=== PATIENT | female | born 1965 | race American Indian/Alaskan Native ===

== ENCOUNTER 2017-04-20 19:16 | Emergency (ER) | payer MEDICARE ==
[2017-04-20 19:26] VITALS: BP 143/118
--- NOTE | 2017-04-20 20:04 | Cat Scan Report ---
FINAL REPORT EXAM: CT HEAD/BRAIN WO CON HISTORY: FACIAL DROOP WITH WEAKNESS TECHNIQUE: CT head without contrast PRIORS: None. FINDINGS: No acute intra-axial or extra-axial hemorrhage is identified. There is no evidence of midline shift or mass effect. The ventricles and sulci are within normal limits. Sanford-white matter differentiation is intact. No acute parenchymal abnormalities seen. Bony calvarium is grossly intact. Visualized portions of the mastoids and paranasal sinuses are unremarkable. IMPRESSION: Negative CT head
[2017-04-20 20:11] LABS: Hematocrit 37.8 % (30.3-42.9); Hemoglobin 12.4 gm/dl (10.1-14.3); Mean Corpuscular HGB Conc 33 % (30-34); Mean Corpuscular Hemoglobin 28 pg (28-32); Mean Corpuscular Volume 85 fl (79-97); Platelet Count 192 K/mm3 (140-440); Red Blood Count 4.46 M/mm3 (3.65-5.03); Red Cell Distribution Width 13.9 % (13.2-15.2)
[2017-04-20 20:23] LABS: INR 0.94 (0.87-1.13)
[2017-04-20 20:24] LABS: Partial Thromboplastin Time 28.6 Sec. (24.2-36.6); Thrombin Time 17.4 Sec. (15.1-19.6)
[2017-04-20 20:25] LABS: Alanine Aminotransferase 18 units/L (7-56); Albumin 3.7 g/dL (3.9-5); BUN/Creatinine Ratio 18; Blood Urea Nitrogen 11 mg/dL (7-17); Calcium 8.8 mg/dL (8.4-10.2); Hemolysis Index 5
[2017-04-20 20:39] LABS: Creatine Kinase MB < 1.0 ng/mL (0.0-4.0)
[2017-04-20 20:51] LABS: Basophils % (Manual) 0 % (0.0-1.8); Total Cells Counted 100
[2017-04-20 20:52] LABS: Anisocytosis Few
== END 2017-04-21 01:00 | disposition left against medical advice (07) ==
LOC: ED 19:16
DX: R29.810 Facial weakness (principal); R51 Headache; I10 Essential (primary) hypertension; Z53.21 Procedure and treatment not carried out due to patient leaving prior to being seen by health care provider
CPT/HCPCS: 36415; 70450; 80048; 80053; 82550; 82553; 84484; 85007; 85025; 85610; 85670; 85730; 93005; 93010

== ENCOUNTER 2019-02-01 08:17 | Observation (INO) | payer MEDICARE ==
--- NOTE | 2019-02-01 08:27 | Emergency Department Report ---
ED Neuro Deficit HPI - General Stated Complaint: NEURO ISSUES Time Seen by Provider: 02/01/19 08:26 Source: patient, EMS Mode of arrival: Stretcher Limitations: Physical Limitation - History of Present Illness Initial Comments: 53-year-old female with past medical history hypertension and bipolar disorder presents to the hospital the hospital complains of stroke symptoms. Patient went to bed at 1 AM without any symptoms. She workup at 7 AM today she was incontinent of stool and complaining of slurred speech, right-sided facial droop, and right-sided weakness. Patient denies previous history of CVA. Patient states she had a seizure earlier this year and is not currently on seizure medications. She has appointment with the neurologist scheduled for February 18. Patient takes aspirin daily. comes to ed and provides some additional information. Apparently has been admitted to a [facility] with weakness after seizures. She also has been experiencing intermittent syncope and diarrhea. - Related Data Home Medications: Home Medications Medication Instructions Recorded Confirmed Last Taken ALPRAZolam [Xanax TAB] 1 mg PO BID PRN 09/08/14 09/08/14 09/06/14 FLUoxetine [PROzac] 40 mg PO QDAY 09/08/14 09/08/14 09/06/14 Potassium Chloride [K-Dur] 10 meq PO QDAY 09/08/14 09/08/14 09/06/14 Quetiapine Fumarate [Seroquel] 300 mg PO DAILY 09/08/14 09/08/14 09/06/14 Valsartan/Hydrochlorothiazide 2 tab PO QDAY 09/08/14 09/08/14 09/06/14 [Diovan Hct 80-12.5 mg] Previous Rx's Medication Instructions Recorded Last Taken Type Ibuprofen [Motrin] 800 mg PO Q8H PRN #30 tablet 09/08/14 Unknown Rx traMADoL [Ultram] 50 mg PO Q6HR PRN #20 tablet 09/08/14 Unknown Rx Naproxen [Naprosyn TAB] 500 mg PO BID PRN #14 tablet 02/18/16 Unknown Rx Allergies/Adverse Reactions: Allergies Allergy/AdvReac Type Severity Reaction Status Date / Time adhesive Allergy Hives Verified 02/17/16 18:56 ED Review of Systems ROS: Stated complaint: NEURO ISSUES Other details as noted in HPI Comment: All other systems reviewed and negative ED Past Medical Hx - Past Medical History Hx Hypertension: Yes Hx Psychiatric Treatment: Yes (BIPOLAR, ANXIETY) - Surgical History Additional Surgical History: SADAF/ ORTHO SURG RIGHT LEG. x1. - Social History Smoking Status: Never Smoker Substance Use Type: None - Medications Home Medications: Home Medications Medication Instructions Recorded Confirmed Last Taken Type ALPRAZolam [Xanax TAB] 1 mg PO BID PRN 09/08/14 09/08/14 09/06/14 History FLUoxetine [PROzac] 40 mg PO QDAY 09/08/14 09/08/14 09/06/14 History Ibuprofen [Motrin] 800 mg PO Q8H PRN #30 tablet 09/08/14 Unknown Rx Potassium Chloride [K-Dur] 10 meq PO QDAY 09/08/14 09/08/14 09/06/14 History Quetiapine Fumarate [Seroquel] 300 mg PO DAILY 09/08/14 09/08/14 09/06/14 History Valsartan/Hydrochlorothiazide 2 tab PO QDAY 09/08/14 09/08/14 09/06/14 History [Diovan Hct 80-12.5 mg] traMADoL [Ultram] 50 mg PO Q6HR PRN #20 tablet 09/08/14 Unknown Rx Naproxen [Naprosyn TAB] 500 mg PO BID PRN #14 tablet 02/18/16 Unknown Rx ED Neuro Physical Exam - General Suspected Stroke: Yes - NIHSS Assessment Interval: Baseline 1a. Level of Consciousness: alert/keenly responsive 1b. LOC Questions: answers both correctly 1c. LOC Commands: performs tasks correctly 2. Best Gaze: normal 3. Visual: no visual loss 4. Facial Palsy: minor paralysis 5b. Motor Arm Right: no drift 5a. Motor Arm Left: no drift 6a. Motor Leg Left: no drift 6b. Motor Leg Right: no drift 7. Limb Ataxia: absent 8. Sensory: mild/moderate sensory loss 9. Best Language: no aphasia 10. Dysarthria: normal 11. Extinction/Inattention: no abnormality Total Score: 2 Stroke Severity: Minor Stroke - Other Other exam information: General: No acute distress Head: Atraumatic Eyes: normal appearance ENT: Moist mucous membranes Neck: Normal appearance, no midline tenderness Chest: Clear to auscultation bilaterally CV: Regular rate and rhythm Abdomen: Soft, normal bowel sounds, nontender, nondistended, no rebound or guarding Back: Normal inspection Extremity: Normal inspection infection, full range of motion Neuro: Alert O x 3, see NIHSS Psych: Appropriate behavior Skin: No rash ED Course Vital Signs 02/01/19 02/01/19 02/01/19 08:30 08:54 08:57 Temperature 98.2 F Pulse Rate 69 60 Respiratory 18 21 16 Rate Blood Pressure 161/75 Blood Pressure [Left] O2 Sat by Pulse 99 99 Oximetry 02/01/19 08:58 Temperature Pulse Rate 59 L Respiratory 16 Rate Blood Pressure Blood Pressure 132/72 [Left] O2 Sat by Pulse 97 Oximetry - Lab Data Result diagrams: 02/01/19 08:29 02/01/19 08:29 Lab Results 02/01/19 02/01/19 02/01/19 Range/Units 08:28 08:29 08:29 WBC 7.8 (4.5-11.0) K/mm3 RBC 4.83 (3.65-5.03) M/mm3 Hgb 14.1 (10.1-14.3) gm/dl Hct 42.9 (30.3-42.9) % MCV 89 (79-97) fl MCH 29 (28-32) pg MCHC 33 (30-34) % RDW 13.6 (13.2-15.2) % Plt Count 194 (140-440) K/mm3 Lymph % (Auto) 38.0 H (13.4-35.0) % Cowley % (Auto) 4.7 (0.0-7.3) % Eos % (Auto) 1.6 (0.0-4.3) % Baso % (Auto) 0.2 (0.0-1.8) % Lymph # 2.9 (1.2-5.4) K/mm3 Cowley # 0.4 (0.0-0.8) K/mm3 Eos # 0.1 (0.0-0.4) K/mm3 Baso # 0.0 (0.0-0.1) K/mm3 Seg Neutrophils % 55.5 (40.0-70.0) % Seg Neutrophils # 4.3 (1.8-7.7) K/mm3 PT 13.0 (12.2-14.9) Sec. INR 0.99 (0.87-1.13) APTT 28.5 (24.2-36.6) Sec. Thrombin Time 17.5 (15.1-19.6) Sec. Sodium (137-145) mmol/L Potassium (3.6-5.0) mmol/L Chloride (98-107) mmol/L Carbon Dioxide (22-30) mmol/L Anion Gap mmol/L BUN (7-17) mg/dL Creatinine (0.7-1.2) mg/dL Estimated GFR ml/min BUN/Creatinine Ratio % Glucose (65-100) mg/dL POC Glucose 85 (70-105) Calcium (8.4-10.2) mg/dL 02/01/19 Range/Units 08:29 WBC (4.5-11.0) K/mm3 RBC (3.65-5.03) M/mm3 Hgb (10.1-14.3) gm/dl Hct (30.3-42.9) % MCV (79-97) fl MCH (28-32) pg MCHC (30-34) % RDW (13.2-15.2) % Plt Count (140-440) K/mm3 Lymph % (Auto) (13.4-35.0) % Cowley % (Auto) (0.0-7.3) % Eos % (Auto) (0.0-4.3) % Baso % (Auto) (0.0-1.8) % Lymph # (1.2-5.4) K/mm3 Cowley # (0.0-0.8) K/mm3 Eos # (0.0-0.4) K/mm3 Baso # (0.0-0.1) K/mm3 Seg Neutrophils % (40.0-70.0) % Seg Neutrophils # (1.8-7.7) K/mm3 PT (12.2-14.9) Sec. INR (0.87-1.13) APTT (24.2-36.6) Sec. Thrombin Time (15.1-19.6) Sec. Sodium 143 (137-145) mmol/L Potassium 3.6 (3.6-5.0) mmol/L Chloride 105.2 (98-107) mmol/L Carbon Dioxide 22 (22-30) mmol/L Anion Gap 19 mmol/L BUN 14 (7-17) mg/dL Creatinine 0.7 (0.7-1.2) mg/dL Estimated GFR > 60 ml/min BUN/Creatinine Ratio 20 % Glucose 94 (65-100) mg/dL POC Glucose (70-105) Calcium 9.3 (8.4-10.2) mg/dL - EKG Data -: EKG Interpreted by Me EKG shows normal: sinus rhythm, ST-T waves (no stemi) Rate: normal (63) - Radiology Data Radiology results: report reviewed CT HEAD WITHOUT CONTRAST INDICATION : MAIN: rule out stroke CODE STROKE [id number]. TECHNIQUE: Axial imaging performed from the skull apex through the skull base without the use of contrast. All CT scans at this location are performed using CT dose reduction for ALARA by means of automated exposure control. COMPARISON: 04/20/2017 FINDINGS: Parenchyma: No abnormal density. No mass or mass effect. No hemorrhage or edema. Ventricles: Ventricles are normal in size and appear symmetric. Soft tissues: Soft tissues including the orbits appear normal. Bones: No acute osseous abnormality. Sinuses: Sinuses and mastoid air cells are clear. IMPRESSION: 1. Normal head CT. 2. No evidence of acute infarct or hemorrhage. - Medical Decision Making pt with seizure vs syncope neuro evaluated pt, not a tpa candidate (see neuro note) asa provided plan to admit to hospitalist - Differential Diagnosis seizure, syncope, conversion disorder, Duncan paralysis - Thrombolytic Inclusion/Exclusion Thrombolytic Exclusion Criteria: Symptom Onset > 3 Hours Critical Care Time: No Critical care attestation.: If time is entered above; I have spent that time in minutes in the direct care of this critically ill patient, excluding procedure time. ED Disposition Clinical Impression: Stroke, HTN (hypertension) Disposition: DC-09 OP ADMIT IP TO THIS HOSP Is pt being admited?: Yes Condition: Stable Time of Disposition: 09:26 (Dr Mckinley/ to be admitted to Dr Holguin)
--- NOTE | 2019-02-01 08:46 | Cat Scan Report ---
CT HEAD WITHOUT CONTRAST INDICATION : MAIN: rule out stroke CODE STROKE [id number]. TECHNIQUE: Axial imaging performed from the skull apex through the skull base without the use of con trast. All CT scans at this location are performed using CT dose reduction for ALARA by means of aut omated exposure control. COMPARISON: 04/20/2017 FINDINGS: Parenchyma: No abnormal density. No mass or mass effect. No hemorrhage or edema. Ventricles: Ventricles are normal in size and appear symmetric. Soft tissues: Soft tissues including the orbits appear normal. Bones: No acute osseous abnormality. Sinuses: Sinuses and mastoid air cells are clear. IMPRESSION: 1. Normal head CT. 2. No evidence of acute infarct or hemorrhage. CRITICAL RESULT: Time of Discovery (TARGET WORKER/CDT): 7:39 AM Time of Communication (TARGET WORKER/CDT): 7:40 AM Licensed Practitioner Receiving Report: Lori Lake M.D. Read Back Performed: Yes. Signer Name: Serge Messina MD Signed: 02/01/2019 8:42 AM Workstation Name: [id number]
[2019-02-01] MEDS ORDERED: ASPIRIN 81 MG TAB CHEW PO NR (08:51)
--- NOTE | 2019-02-01 08:51 | Emergency Department Report ---
ED Neuro Deficit HPI - General Chief Complaint: Altered Mental Status Stated Complaint: NEURO ISSUES Time Seen by Provider: 02/01/19 08:26 Source: patient, EMS Mode of arrival: Stretcher Limitations: Physical Limitation - History of Present Illness Initial Comments: [facility] TeleStroke Metrics: LKW: 0100 Door Time: 0817 [facility] Contacted: 0809 [facility] at Bedside: 0811 NIHSS: 0829 Decision on Alteplase: Not to give as the patient's last known well time is greater than 4.5 hours prior to her presentation. Interventional Candidate: Not a candidate as her symptoms are not consistent with a large vessel proximal occlusion. Chief Complaint: Right facial droop, slurred speech, and right-sided numbness HPI: Asked to see this patient in emergent telemedicine consultation utilizing interactive audio and video technologies. Consultation was performed with assistance of ancillary / medical staff at bedside. Verbal consent to perform the examination with telemedicine was obtained. Socorro leonard agreed to proceed with the consultation for acute stroke protocol. 53-year-old right-handed -[place] female who comes to the emergency room by EMS as a stroke alert for right facial droop, slurred speech, incontinence, and right-sided numbness. Patient takes a baby aspirin at baseline. She reported a history of possible seizure this year where she had whole body jerking. She is not on any seizure medications, and is scheduled to see neurology on February 18. Review of the medical records also showed that in April 2017, the patient presented to the ER with a facial droop and slurred speech. Head CT was negative. She had left the ER prior to evaluation. Patient states she went to bed around 1 AM at her baseline. She then woke up at 7 AM with a right facial droop, slurred speech, and incontinence of bowel. She also has right-sided numbness. PMH: Hypertension, bipolar disorder, anxiety disorder, and possible seizure SOC: Negative x2. Patient drinks an occasional glass of wine. She is . FMH: Positive for stroke and NM. ROS: 13 point review systems were reviewed with the patient, and are all negative with the exception of the aforementioned in the history of present illness. VS: Blood pressure 162 175, pulse 73, respiration 18, oxygen saturation 99% Exam: Patient is in no apparent distress. Patient appears as stated age. No obvious acute respiratory or cardiac distress. Patient is well groomed and well-nourished. 1a- LOC: Keenly responsive - 0 1b- LOC questions: Answers both questions correctly - 0 1c- LOC commands- Performs both tasks correctly- 0 2- Gaze: Normal; no gaze paresis or gaze deviation - 0 3- Visual Chandra: normal, no Visual field deficit - 0 4- Facial movements: right facial palsy - 1 5- Upper limb motor - no drift - 0 6- Lower limb motor - no drift - 0 7- Limb Coordination: absent ataxia - 0 8- Sensory: right sided sensory loss - 1 9- Language - No aphasia - 0 10- Speech - No dysarthria -0 11- Neglect / Extinction - none found - 0 NIHSS score: 2 Diagnostic Data: Blood sugar 85 CT head showed no acute intracranial process Medical Data Reviewed: 1.Data?reviewed include clinical labs, radiology,?and medical tests; 2.Tests?results discussed w/performing or interpreting physician; 3.Obtaining/reviewing old medical records; 4.Obtaining?case history from another source; 5.Independent?review of image, tracing, or specimen. Medical Decision Making: - Extensive number of diagnosis or management options are considered below. - Extensive amount of complex data reviewed. - High risk of complication and/or morbidity or mortality are associated with differential diagnostic considerations below. - There may be?uncertain?outcome and increased probability of prolonged functional impairment or high probability of severe prolonged functional impairment associated with some of these differential diagnosis. Differential Diagnosis for Stroke: 1.?Cardioembolic?stroke 2. Small vessel disease/lacune 3. Thromboembolic, [id number] mechanism 4.?Hypercoagulable?state-related infarct 5. Transient ischemic attack 6. Thrombotic mechanism, large artery disease Assessment: 1. Right-sided numbness with right facial droop. Differential diagnosis includes conversion disorder versus stroke versus seizure. 2. Possible seizure 3. Hypertension 4. Bipolar disorder Recommendations: Patient can be admitted to the hospital for further work-up of her symptoms. Maintain the patient on aspirin 325 mg daily. Allow permissive hypertension. Check MRI brain without contrast to rule out any acute intracranial process. Check MRA of the head and neck to evaluate her intracranial and extracranial blood vessels. Check echocardiogram to gauge her cardiac function. Maintain the patient on telemetry to look for paroxysmal atrial fibrillation. Check an EEG to rule out subclinical seizures given her reported history of seizure and bowel incontinence. Check hemoglobin A1c, lipid panel, and urine drug screen. Consult PT, OT, and ST. Continue supportive care. Thank you for allowing [facility] to participate in the care of your patient. Please call me, Dr. Aquino, with any questions at [phone]. Case discussed with the ER staff and Dr. Lake. Critical Care notation: I was called to see this critical patient emergently. I personally evaluated this critical patient for acute stroke evaluation, and determining their eligibility for IV Alteplase and interventional therapies. I have spent approximately 27 minutes with the patient, including time at bedside, time discussing the case with other physicians, reviewing plan of care, and time independently reviewing the records and scans. - Related Data Home Medications: Home Medications Medication Instructions Recorded Confirmed Last Taken ALPRAZolam [Xanax TAB] 1 mg PO BID PRN 09/08/14 09/08/14 09/06/14 FLUoxetine [PROzac] 40 mg PO QDAY 09/08/14 09/08/14 09/06/14 Potassium Chloride [K-Dur] 10 meq PO QDAY 09/08/14 09/08/14 09/06/14 Quetiapine Fumarate [Seroquel] 300 mg PO DAILY 09/08/14 09/08/14 09/06/14 Valsartan/Hydrochlorothiazide 2 tab PO QDAY 09/08/14 09/08/14 09/06/14 [Diovan Hct 80-12.5 mg] Previous Rx's Medication Instructions Recorded Last Taken Type Ibuprofen [Motrin] 800 mg PO Q8H PRN #30 tablet 09/08/14 Unknown Rx traMADoL [Ultram] 50 mg PO Q6HR PRN #20 tablet 09/08/14 Unknown Rx Naproxen [Naprosyn TAB] 500 mg PO BID PRN #14 tablet 02/18/16 Unknown Rx Allergies/Adverse Reactions: Allergies Allergy/AdvReac Type Severity Reaction Status Date / Time adhesive Allergy Hives Verified 02/17/16 18:56 ED Review of Systems ROS: Stated complaint: NEURO ISSUES Other details as noted in HPI ED Past Medical Hx - Past Medical History Hx Hypertension: Yes Hx Psychiatric Treatment: Yes (BIPOLAR, ANXIETY) - Surgical History Additional Surgical History: SADAF/ ORTHO SURG RIGHT LEG. x1. - Social History Smoking Status: Never Smoker Substance Use Type: None - Medications Home Medications: Home Medications Medication Instructions Recorded Confirmed Last Taken Type ALPRAZolam [Xanax TAB] 1 mg PO BID PRN 09/08/14 09/08/14 09/06/14 History FLUoxetine [PROzac] 40 mg PO QDAY 09/08/14 09/08/14 09/06/14 History Ibuprofen [Motrin] 800 mg PO Q8H PRN #30 tablet 09/08/14 Unknown Rx Potassium Chloride [K-Dur] 10 meq PO QDAY 09/08/14 09/08/14 09/06/14 History Quetiapine Fumarate [Seroquel] 300 mg PO DAILY 09/08/14 09/08/14 09/06/14 History Valsartan/Hydrochlorothiazide 2 tab PO QDAY 09/08/14 09/08/14 09/06/14 History [Diovan Hct 80-12.5 mg] traMADoL [Ultram] 50 mg PO Q6HR PRN #20 tablet 09/08/14 Unknown Rx Naproxen [Naprosyn TAB] 500 mg PO BID PRN #14 tablet 02/18/16 Unknown Rx ED Neuro Physical Exam - General Limitations: Physical Limitation Suspected Stroke: Yes - NIHSS Assessment Interval: Baseline 1a. Level of Consciousness: alert/keenly responsive 1b. LOC Questions: answers both correctly 1c. LOC Commands: performs tasks correctly 2. Best Gaze: normal 3. Visual: no visual loss 4. Facial Palsy: minor paralysis 5b. Motor Arm Right: no drift 5a. Motor Arm Left: no drift 6a. Motor Leg Left: no drift 6b. Motor Leg Right: no drift 7. Limb Ataxia: absent 8. Sensory: mild/moderate sensory loss 9. Best Language: no aphasia 10. Dysarthria: normal 11. Extinction/Inattention: no abnormality Total Score: 2 Stroke Severity: Minor Stroke Critical care attestation.: If time is entered above; I have spent that time in minutes in the direct care of this critically ill patient, excluding procedure time. ED Disposition Clinical Impression: Stroke Disposition: OP ADMIT IP TO THIS HOSP Is pt being admited?: Yes Does the pt Need Aspirin: Yes Condition: Stable
[2019-02-01 09:07] LABS: Basophils % (Auto) 0.2 % (0.0-1.8); Eosinophils # (Auto) 0.1 K/mm3 (0.0-0.4); Eosinophils % (Auto) 1.6 % (0.0-4.3); Hematocrit 42.9 % (30.3-42.9); Hemoglobin 14.1 gm/dl (10.1-14.3); Lymphocytes # (Auto) 2.9 K/mm3 (1.2-5.4); Mean Corpuscular HGB Conc 33 % (30-34); Mean Corpuscular Volume 89 fl (79-97); Monocytes # (Auto) 0.4 K/mm3 (0.0-0.8); Monocytes % (Auto) 4.7 % (0.0-7.3); Platelet Count 194 K/mm3 (140-440); Red Blood Count 4.83 M/mm3 (3.65-5.03); Red Cell Distribution Width 13.6 % (13.2-15.2)
[2019-02-01 09:11] LABS: BUN/Creatinine Ratio 20; Blood Urea Nitrogen 14 mg/dL (7-17); Calcium 9.3 mg/dL (8.4-10.2); Hemolysis Index 7
[2019-02-01 09:19] LABS: INR 0.99 (0.87-1.13)
[2019-02-01 09:20] LABS: Partial Thromboplastin Time 28.5 Sec. (24.2-36.6); Thrombin Time 17.5 Sec. (15.1-19.6)
[2019-02-01] MEDS ORDERED: ASPIRIN 325 MG TAB PO ONE (09:27)
--- NOTE | 2019-02-01 12:47 | History and Physical Report ---
History of Present Illness Date of examination: 02/01/19 Date of admission: 02/01/19 09:37 Medications and Allergies Allergies Allergy/AdvReac Type Severity Reaction Status Date / Time adhesive Allergy Hives Verified 02/17/16 18:56 Home Medications Medication Instructions Recorded Confirmed Last Taken Type ALPRAZolam [Xanax TAB] 1 mg PO BID PRN 09/08/14 09/08/14 09/06/14 History FLUoxetine [PROzac] 40 mg PO QDAY 09/08/14 09/08/14 09/06/14 History Ibuprofen [Motrin] 800 mg PO Q8H PRN #30 tablet 09/08/14 Unknown Rx Potassium Chloride [K-Dur] 10 meq PO QDAY 09/08/14 09/08/14 09/06/14 History Quetiapine Fumarate [Seroquel] 300 mg PO DAILY 09/08/14 09/08/14 09/06/14 History Valsartan/Hydrochlorothiazide 2 tab PO QDAY 09/08/14 09/08/14 09/06/14 History [Diovan Hct 80-12.5 mg] traMADoL [Ultram] 50 mg PO Q6HR PRN #20 tablet 09/08/14 Unknown Rx Naproxen [Naprosyn TAB] 500 mg PO BID PRN #14 tablet 02/18/16 Unknown Rx Exam - Constitutional Vitals: Temp Pulse Resp BP Pulse Ox 98.2 F 59 L 16 132/72 97 02/01/19 08:30 02/01/19 08:58 02/01/19 08:58 02/01/19 08:58 02/01/19 08:58 Results - Labs CBC & Chem 7: 02/01/19 08:29 02/01/19 08:29 Labs: Laboratory Last Values WBC 7.8 K/mm3 (4.5-11.0) 02/01/19 08:29 RBC 4.83 M/mm3 (3.65-5.03) 02/01/19 08:29 Hgb 14.1 gm/dl (10.1-14.3) 02/01/19 08:29 Hct 42.9 % (30.3-42.9) 02/01/19 08:29 MCV 89 fl (79-97) 02/01/19 08:29 MCH 29 pg (28-32) 02/01/19 08:29 MCHC 33 % (30-34) 02/01/19 08:29 RDW 13.6 % (13.2-15.2) 02/01/19 08:29 Plt Count 194 K/mm3 (140-440) 02/01/19 08:29 Lymph % (Auto) 38.0 % (13.4-35.0) H 02/01/19 08:29 Barron % (Auto) 4.7 % (0.0-7.3) 02/01/19 08:29 Eos % (Auto) 1.6 % (0.0-4.3) 02/01/19 08:29 Baso % (Auto) 0.2 % (0.0-1.8) 02/01/19 08:29 Lymph # 2.9 K/mm3 (1.2-5.4) 02/01/19 08:29 Barron # 0.4 K/mm3 (0.0-0.8) 02/01/19 08:29 Eos # 0.1 K/mm3 (0.0-0.4) 02/01/19 08:29 Baso # 0.0 K/mm3 (0.0-0.1) 02/01/19 08:29 Seg Neutrophils % 55.5 % (40.0-70.0) 02/01/19 08:29 Seg Neutrophils # 4.3 K/mm3 (1.8-7.7) 02/01/19 08:29 PT 13.0 Sec. (12.2-14.9) 02/01/19 08:29 INR 0.99 (0.87-1.13) 02/01/19 08:29 APTT 28.5 Sec. (24.2-36.6) 02/01/19 08:29 Thrombin Time 17.5 Sec. (15.1-19.6) 02/01/19 08:29 Sodium 143 mmol/L (137-145) 02/01/19 08:29 Potassium 3.6 mmol/L (3.6-5.0) 02/01/19 08:29 Chloride 105.2 mmol/L (98-107) 02/01/19 08:29 Carbon Dioxide 22 mmol/L (22-30) 02/01/19 08:29 Anion Gap 19 mmol/L 02/01/19 08:29 BUN 14 mg/dL (7-17) 02/01/19 08:29 Creatinine 0.7 mg/dL (0.7-1.2) 02/01/19 08:29 Estimated GFR > 60 ml/min 02/01/19 08:29 BUN/Creatinine Ratio 20 % 02/01/19 08:29 Glucose 94 mg/dL (65-100) 02/01/19 08:29 POC Glucose 85 (70-105) 02/01/19 08:28 Calcium 9.3 mg/dL (8.4-10.2) 02/01/19 08:29
--- NOTE | 2019-02-01 13:38 | History and Physical Report ---
History of Present Illness Date of examination: 02/01/19 Date of admission: 02/01/19 09:37 Chief complaint: throat closing History of present illness: Patient is a 53 yo woman with a history of hypertension, KD on cpap, bipolar disorder, allergic rhinitis and seizure disorder who presents to [facility] ED with throat closing, inability to swallow after waking up from sleep at 6:45 am. She had urinary incontinency and fecal frequency and incontinency. She felt her face was tingling. She denies headache, syncope. She admits to stopping her anti- seizure medications and has an appointment with Neurologist in February 2019. She complains of slurred speech, right facial droop and right sided weakness which have all resolved. PMH: as hpi PSH: tonsil, x 2, appendix removed, metal ajay right lower leg SH: denies etoh/tob/illicit drugs FH: sister CVA, father cardiac stent in his 70s, hypertension and DM ROS: Constitutional: denies: fever ENT: denies: throat or neck pain Respiratory: denies: cough, shortness of breath Cardiovascular: denies: chest pain Endocrine: denies unexplained weight loss or gain Gastrointestinal: denies: abdominal pain, nausea Genitourinary: denies: dysuria Rectal: denies no incontinence, no bleeding, no itching, no discharge Musculoskeletal: denies swelling, myaglia, muscle weakness Skin: denies: rash Neurological: denies: headache Hematological/Lymphatic: denies: easy bleeding or easy bruising Allergic/Immunologic: no urticaria, no allergic rhinitis, no anaphylaxis Psych: denies sadness or hopelessness, SI/HI Medications and Allergies Allergies Allergy/AdvReac Type Severity Reaction Status Date / Time adhesive Allergy Hives Verified 02/17/16 18:56 Home Medications Medication Instructions Recorded Confirmed Last Taken Type ALPRAZolam [Xanax TAB] 1 mg PO BID PRN 09/08/14 09/08/14 09/06/14 History FLUoxetine [PROzac] 40 mg PO QDAY 09/08/14 09/08/14 09/06/14 History Ibuprofen [Motrin] 800 mg PO Q8H PRN #30 tablet 09/08/14 Unknown Rx Potassium Chloride [K-Dur] 10 meq PO QDAY 09/08/14 09/08/14 09/06/14 History Quetiapine Fumarate [Seroquel] 300 mg PO DAILY 09/08/14 09/08/14 09/06/14 History Valsartan/Hydrochlorothiazide 2 tab PO QDAY 09/08/14 09/08/14 09/06/14 History [Diovan Hct 80-12.5 mg] traMADoL [Ultram] 50 mg PO Q6HR PRN #20 tablet 09/08/14 Unknown Rx Naproxen [Naprosyn TAB] 500 mg PO BID PRN #14 tablet 02/18/16 Unknown Rx Exam - Physical Exam Narrative exam: Gen: WDWN, NAD, Awake, Alert, Orientated x 3 HEENT: NCAT, EOMI, PERRL, OP Clear Neck: supple, no adenopathy, no thyromegaly, no JVD CVS/Heart: RRR, normal S1S2, pulses present bilaterally Chest/Lungs: CTA B, Symmetrical chest expansion, good air entry bilaterally GI/Abdomen: soft, NTND, good bowel sounds, no guarding or rebound /Bladder: no suprapubic tenderness, no CVA or paraspinal tenderness Extermity/Skin: no c/c/e, no obvious rash MSK: FROM x 4 Neuro: CN 2-12 grossly intact, no new focal deficits Psych: calm - Constitutional Vitals: Temp Pulse Resp BP Pulse Ox 98.2 F 59 L 16 132/72 97 02/01/19 08:30 02/01/19 08:58 02/01/19 08:58 02/01/19 08:58 02/01/19 08:58 Results - Labs CBC & Chem 7: 02/01/19 08:29 02/01/19 08:29 Labs: Abnormal lab results 02/01/19 Range/Units 08:29 Lymph % (Auto) 38.0 H (13.4-35.0) % Assessment and Plan Patient is a 53 yo woman with a history of hypertension, KD on cpap, bipolar disorder, allergic rhinitis and seizure disorder who presents to [facility] ED with throat closing, inability to swallow after waking up from sleep at 6:45 am. She had urinary incontinency and fecal frequency and incontinency. She felt her face was tingling. She denies headache, syncope. She admits to stopping her anti- seizure medications and has an appointment with Neurologist in February 2019. She complains of slurred speech, right facial droop and right sided weakness which have all resolved. * CT head without contrast Impression: Normal head CT AMS, appears to be sz related vs stroke vs tia vs mike's palsy vs conversion disorder: mri brain, neurology consult, neurochecks, sz precautions Seizure; restart sz medication, EEG and housing counselor on compliance KD: continue cpap Hypertension: low salt/cardiac diet, continue home antihypertensives Bipolar disorder: continue home medication DVT ppx sq heparin
[2019-02-01] MEDS ORDERED: traMADol 50 MG TAB PO PRN (13:42)
[2019-02-01] MEDS ORDERED: ALPRAZolam 1 MG TAB PO PRN (13:42)
[2019-02-01] MEDS ORDERED: ONDANSETRON 4 MG/2 ML INJ IV PRN (13:43)
[2019-02-01] MEDS ORDERED: ACETAMINOPHEN 325 MG TAB PO PRN (13:43)
[2019-02-01] MEDS ORDERED: ZOLPIDEM 5 MG TAB PO PRN (13:46)
--- NOTE | 2019-02-01 17:45 | Magnetic Resonance Report ---
MRI BRAIN WITHOUT CONTRAST INDICATION / CLINICAL INFORMATION: facial droop. TECHNIQUE: Multiplanar, multisequence MR images of the brain were obtained. COMPARISON: None available. FINDINGS: BRAIN / INTRACRANIAL CONTENTS: There are minimal left periventricular white matter changes adjacent t o the frontal horns which are nonspecific though may reflect mild microvascular changes at. The diffu nichelle imaging reveals no evidence of acute infarction. The ventricular system is appropriate in size a nd configuration. No extra-axial fluid collections or significant mass effect is identified at. CRANIOCERVICAL JUNCTION: No significant abnormality. 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 The vascular structures otherwise grossly demonstrate appropriate signal voids. ORBITS: No significant abnormality. SINUSES / MASTOIDS: There is minimal mucosal thickening involving the ethmoid and inferior maxillary sinuses. ADDITIONAL FINDINGS: None. IMPRESSION: 1. The MRI the brain is unremarkable for age without evidence of recent infarction. Signer Name: Sergio Nguyen MD Signed: 02/01/2019 5:41 PM Workstation Name: [id number]
--- NOTE | 2019-02-01 17:55 | Magnetic Resonance Report ---
MR MRA/MRV head wo con INDICATION / CLINICAL INFORMATION: 53 years Female; facial droop. TECHNIQUE: 3-D time of flight. NASCET type criteria used to evaluate stenoses. COMPARISON: None available. FINDINGS: INTERNAL CAROTID ARTERIES: The motion degrades image quality. However, there is no significant disc s tenosis involving visualized internal carotid arteries. 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 There is no significant narrowing of the basilar artery. DISTAL BRANCHES: The visualized cerebral arteries and proximal branches also demonstrate appropriate caliber without significant focal narrowing. ANEURYSM: None identified. 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 Otherwise, the MRA of the head is unremarkable. Signer Name: Sergio Nguyen MD Signed: 02/01/2019 5:50 PM Workstation Name: [id number]
[2019-02-01] MEDS ORDERED: ASPIRIN 325 MG TAB ONE (17:59)
--- NOTE | 2019-02-01 18:09 | Consultation ---
History of Present Illness Consult date: 02/01/19 Chief complaint: possible seizure History of present illness: This is a 53 YO F who presented to the ED after having what is described as an allergic reaction followed by focal neurologic symptoms. PT withseizure disorder and admits that she stopped taking her Lamictal a while ago and has had several spells lately. She stopped the Lamictal by accident, her MD told her to stop a BP med and she thought it was the Lamictal. Currently at baseline. Past History Past Medical History: hypertension, seizures Past Surgical History: No surgical history Social history: no significant social history, Family history: hypertension Medications and Allergies Allergies Allergy/AdvReac Type Severity Reaction Status Date / Time adhesive Allergy Hives Verified 02/17/16 18:56 Home Medications Medication Instructions Recorded Confirmed Last Taken Type ALPRAZolam [Xanax TAB] 1 mg PO BID PRN 09/08/14 09/08/14 09/06/14 History FLUoxetine [PROzac] 40 mg PO QDAY 09/08/14 09/08/14 09/06/14 History Ibuprofen [Motrin] 800 mg PO Q8H PRN #30 tablet 09/08/14 Unknown Rx Potassium Chloride [K-Dur] 10 meq PO QDAY 09/08/14 09/08/14 09/06/14 History Quetiapine Fumarate [Seroquel] 300 mg PO DAILY 09/08/14 09/08/14 09/06/14 History Valsartan/Hydrochlorothiazide 2 tab PO QDAY 09/08/14 09/08/14 09/06/14 History [Diovan Hct 80-12.5 mg] traMADoL [Ultram] 50 mg PO Q6HR PRN #20 tablet 09/08/14 Unknown Rx Naproxen [Naprosyn TAB] 500 mg PO BID PRN #14 tablet 02/18/16 Unknown Rx Active Meds: Active Medications Acetaminophen (Tylenol) 650 mg PO Q4H PRN PRN Reason: Pain, Mild (1-3) Alprazolam (Xanax) 1 mg PO BID PRN PRN Reason: Anxiety Aspirin (Aspirin) 325 mg PO QDAY [facility] Atorvastatin Calcium (Lipitor) 40 mg PO QHS [facility] Heparin Sodium (Porcine) (Heparin) 5,000 unit SUB-Q Q12HR [facility] Hydrochlorothiazide (Hctz) 25 mg PO QDAY [facility] Loratadine (Claritin) 10 mg PO QDAY [facility] Ondansetron HCl (Zofran) 4 mg IV Q8H PRN PRN Reason: Nausea And Vomiting Quetiapine Fumarate (Seroquel) 300 mg PO DAILY [facility] Sodium Chloride (Sodium Chloride Flush Syringe 10 Ml) 10 ml IV PRN PRN PRN Reason: LINE FLUSH Tramadol HCl (Ultram) 50 mg PO Q6HR PRN PRN Reason: PAIN Valsartan (Diovan) 160 mg PO QDAY [facility] Zolpidem Tartrate (Ambien) 5 mg PO QHS PRN PRN Reason: Sleep Review of Systems Neurological: seizures Physical Examination - Vital Signs Vital Signs: Vital Signs Temp Pulse Resp BP Pulse Ox 98.2 F 69 18 161/75 99 02/01/19 08:30 02/01/19 08:30 02/01/19 08:30 02/01/19 08:30 02/01/19 08:30 - Constitutional General appearance: comfortable - EENT EENT: Present: PERRL, mucous membranes moist - Respiratory Respiratory: Present: lungs clear - Cardiovascular Cardiovascular: Present: regular rate - Gastrointestinal Gastrointestinal: Present: normoactive bowel sounds - Integumentary Integumentary: Present: normal - Neurologic Cranial nerve examination: PERRL, EOMI, V1/V2/V3 grossly intact, face symmetric, intact Speech examination: intact Sensorimotor examination: intact Detailed motor examination: grossly full strength in Detailed sensory examination: intact Reflexes: 1+: ankle, bicep, knee, tricep - Psychiatric Psychiatric: Present: mood/affect appropriate Results - Laboratory Findings CBC and BMP: 02/01/19 08:29 02/01/19 08:29 Abnormal Lab Findings: Abnormal Labs 02/01/19 08:29 Lymph % (Auto) 38.0 H - Diagnostic Findings Additional findings: MRI Brain/MRA head unremarkable Assessment and Plan This is a 53 YO F with likely allergic reaction and lowered seizure threshold secondary to this and lack of medication compliance. Recommend: Will restart Lamictal 25 mg BID, can increase to 50 mg BID in one week and further adjustments can be made by her neurologist outpatient Seizure precautions COntinue care for all medical issues as you are doing No driving as per [place] law If possible please find a substitute pain medication for Tramadol. This can lower seizure threshold. Please call with questions.
[2019-02-01] MEDS: LORATADINE (NF) 10 MG TAB PO SCH (18:25)
[2019-02-01] MEDS: lamoTRIgine 25 MG TAB PO SCH (21:38)
[2019-02-02 06:27] LABS: Chol/HDL Ratio 3.06 %
[2019-02-02] MEDS: lamoTRIgine 25 MG TAB PO SCH (09:38)
[2019-02-02] MEDS: QUEtiapine 100 MG TAB PO SCH ×2 (09:38→10:16)
[2019-02-02 09:39] VITALS: BP 121/70
[2019-02-02] MEDS: LORATADINE (NF) 10 MG TAB PO SCH (09:39)
[2019-02-02] MEDS ORDERED: HYDROCHLOROTHIAZIDE PO SCH (10:00)
[2019-02-02] MEDS ORDERED: hydroCHLOROthiazide 25 MG TAB PO SCH (10:00)
[2019-02-02] MEDS ORDERED: VALSARTAN 160MG TAB PO SCH (10:00)
[2019-02-02] MEDS ORDERED: VALSARTAN PO SCH (10:00)
[2019-02-02] MEDS ORDERED: ASPIRIN 325 MG TAB PO SCH (10:00)
[2019-02-02] MEDS ORDERED: FLU VACC QUAD 2019-20 (3 YR UP)/PF 60 MCG/0.5 ML SYRINGE IM ONE (12:00)
--- NOTE | 2019-02-02 15:22 | Consultation ---
History of Present Illness - Reason for Consult Consult date: 02/02/19 Reason for consult: Mental Health Evaluation Requesting physician: ONEIDA MORALES - Chief Complaint Chief complaint: "I have been falling" - History of Present Psychiatric Illness 53 y.o. AA female who presented to the ER for stroke like symptoms. Psychiatry was consulted to see the patient for possible Conversion DO. Today the patient was calm and cooperative during the assessment. She stated that she have been falling lately with left sided weakness. She stated that these symptoms are new for her and have an appt for neuro outpatient 18 Feb 2019. She stated that she does not have any stressors at this time. She stated that she stopped taking her Lamictal for several months unintentionally. She stated that she has a hx of m ood do and is seen by Dr Santiago for outpatient psy services. She denies being depressed, SI/HI's, and AVH's. She denies erratic sleep and a poor appetite. She denies recreational drug use and alcohol consumption (etoh). Medications and Allergies Allergies Allergy/AdvReac Type Severity Reaction Status Date / Time adhesive Allergy Hives Verified 02/17/16 18:56 Home Medications Medication Instructions Recorded Confirmed Last Taken Type FLUoxetine [PROzac] 40 mg PO QDAY 09/08/14 09/08/14 09/06/14 History Potassium Chloride [K-Dur] 10 meq PO QDAY 09/08/14 09/08/14 09/06/14 History Valsartan/Hydrochlorothiazide 2 tab PO QDAY 09/08/14 09/08/14 09/06/14 History [Diovan Hct 80-12.5 mg] traMADoL [Ultram 50 MG tab] 50 mg PO Q6HR PRN #20 tablet 09/08/14 Unknown Rx lamoTRIgine [LaMICtal] 25 mg PO BID #60 tablet 02/02/19 Unknown Rx Active Meds: Active Medications Acetaminophen (Tylenol) 650 mg PO Q4H PRN PRN Reason: Pain, Mild (1-3) Alprazolam (Xanax) 1 mg PO BID PRN PRN Reason: Anxiety Aspirin (Aspirin) 325 mg PO QDAY [facility] Last Admin: 02/02/19 09:37 Dose: 325 mg Documented by: Atorvastatin Calcium (Lipitor) 40 mg PO QHS [facility] Last Admin: 02/01/19 21:38 Dose: 40 mg Documented by: Heparin Sodium (Porcine) (Heparin) 5,000 unit SUB-Q Q12HR [facility] Hydrochlorothiazide (Hctz) 25 mg PO QDAY [facility] Last Admin: 02/02/19 09:38 Dose: 25 mg Documented by: Lamotrigine (Lamictal) 25 mg PO BID [facility] Last Admin: 02/02/19 09:38 Dose: 25 mg Documented by: Loratadine (Claritin) 10 mg PO QDAY [facility] Last Admin: 02/02/19 09:39 Dose: 10 mg Documented by: Ondansetron HCl (Zofran) 4 mg IV Q8H PRN PRN Reason: Nausea And Vomiting Sodium Chloride (Sodium Chloride Flush Syringe 10 Ml) 10 ml IV PRN PRN PRN Reason: LINE FLUSH Tramadol HCl (Ultram) 50 mg PO Q6HR PRN PRN Reason: Pain, Moderate (4-6) Valsartan (Diovan) 160 mg PO QDAY [facility] Last Admin: 02/02/19 09:38 Dose: 160 mg Documented by: Zolpidem Tartrate (Ambien) 5 mg PO QHS PRN PRN Reason: Sleep Last Admin: 02/01/19 21:38 Dose: 5 mg Documented by: Past psychiatric history - Past Medical History Past Medical History: seizures Past Surgical History: No surgical history - past Psychiatric treatment and history psychiatric treatment history: Hx of mood do. Denies a fam psy hx. - Social History Social history: lives with family Mental Status Exam - Vital signs Last Vital Signs Temp 98.0 F 02/02/19 04:04 Pulse 74 02/02/19 09:38 Resp 18 02/02/19 08:15 BP 121/70 02/02/19 09:38 Pulse Ox 96 02/02/19 04:04 - Exam Narrative exam: MSE: Appearance: calm, cooperative Behavior: regular eye contact Speech: regular rate and tone Mood:: "okay" Affect: congruent to mood Thought Process: logical Thought Content: denies SI/HI's and AVH's Motor Activity: ambulatory Cognition: A/O x3 Insight: appropriate Judgment: appropriate Results Result Diagrams: 02/01/19 08:29 02/01/19 08:29 All other labs normal. Assessment and Plan Assessment and plan: Impression: Hx of Mood DO. Conversion DO ruled out. Today the patient was calm during the assessment. The patient seen by neuro and she was started back on her seizure medication Lamictal. Recommendation/Plan: The patient can follow up with Neuro 18 Feb 2019 for outpatient services. Also, the patient is seen by Dr Santiago for outpatient psy services. Psy sign off. Staffed with Dr Shen Huggins.
--- NOTE | 2019-02-02 17:16 | Discharge Summary ---
Providers - Providers Date of Admission: 02/01/19 09:37 Date of discharge: 02/02/19 Attending physician: ONEIDA MORALES 02/01/19 13:40 Consult to Physician [CONS] Routine Comment: Consulting Provider: ANGELIKA ALONSO Physician Instructions: Reason For Exam: ?stroke ?sz 02/01/19 13:43 Consult to Case Management [CONS] Routine Services Needed at Discharge: Home Health Services Notified:: CASE MANAGEMENT Consult to Dietitian/Nutrition [CONS] Routine Physician Instructions: Reason For Exam: Reason for Consult: Nutrition Recommendations Reason for Consult: Diet education Occupational Therapy Evaluate and Treat [CONS] Routine Comment: Reason For Exam: Neuro deficits Physical Therapy Evaluation and Treat [CONS] Routine Comment: Reason For Exam: Neuro deficits 02/01/19 13:49 Consult to Mental Health [CONS] Urgent Reason For Exam: psych, conversion disorder 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 She had urinary incontinency and fecal frequency and incontinency. She felt her face was tingling. She denies headache, syncope. She admits to stopping her anti- seizure medications and has an appointment with Neurologist in February 2019. She complains of slurred speech, right facial droop and right sided weakness which have all resolved. 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 KD: continue cpap Hypertension: low salt/cardiac diet, continue home antihypertensives Bipolar disorder: continue home medication DVT ppx sq heparin Acute encephalopathy, poa Disposition: TO HOME OR SELFCARE Time spent for discharge: 35 minutes Core Measure Documentation - Palliative Care Palliative Care/ Comfort Measures: Not Applicable - Core Measures Any of the following diagnoses?: none - VTE Discharge Requirements Deep Vein Thrombosis/Pulmonary Embolism Present on Admission: No Has pt received <5 days of overlap therapy or INR<2.0: No Anticoagulant overlap therapy prescribed at discharge: No Contraindication No Overlap Therapy order at DC: Not Indicated Exam - Physical Exam Narrative exam: Gen: WDWN, NAD, Awake, Alert, Orientated x 3 HEENT: NCAT, EOMI, PERRL, OP Clear Neck: supple, no adenopathy, no thyromegaly, no JVD CVS/Heart: RRR, normal S1S2, pulses present bilaterally Chest/Lungs: CTA B, Symmetrical chest expansion, good air entry bilaterally GI/Abdomen: soft, NTND, good bowel sounds, no guarding or rebound /Bladder: no suprapubic tenderness, no CVA or paraspinal tenderness Extermity/Skin: no c/c/e, no obvious rash MSK: FROM x 4 Neuro: CN 2-12 grossly intact, no new focal deficits Psych: calm - Constitutional Vitals: Temp Pulse Resp BP Pulse Ox 98.0 F 74 18 121/70 96 02/02/19 04:04 02/02/19 09:38 02/02/19 08:15 02/02/19 09:38 02/02/19 04:04 Plan Activity: no driving until cleared by PCP (no driving unless cleared by Neurologist and PCP), other (no strenous activity unless cleared by PCP) Diet: low salt Special Instructions: record daily BP diary Additional Instructions: Follow up with your Psychiatrist. Keep you Neurologist appointment in February Follow up with: PRIMARY CARE, [Referring] - 7 Days Prescriptions: lamoTRIgine [LaMICtal] 25 mg PO BID #60 tablet
[2019-02-02] MEDS ORDERED: HEPARIN 5,000 UNIT/1 ML VIAL SUB-Q SCH (22:00)
== END 2019-02-02 19:47 | disposition home or self-care (01) ==
LOC: ED 08:17 → INTOOBSV 09:37 → 4A 09:37
PROVIDERS: ADMIT Internal Medicine; ATTEND Internal Medicine
DX: I63.9 Cerebral infarction, unspecified (principal); G93.40 Encephalopathy, unspecified; I10 Essential (primary) hypertension; F31.9 Bipolar disorder, unspecified; G40.909 Epilepsy, unspecified, not intractable, without status epilepticus; R32 Unspecified urinary incontinence; Z23 Encounter for immunization
CPT/HCPCS: 36415; 70450; 70544; 70551; 80048; 80061; 82962; 85025; 85610; 85670; 85730; 90686; 93005; 93010; 93306; 94660; 97116; 97162; 99284; A9270; G0378; 96365

== ENCOUNTER 2020-01-16 00:48 | Emergency (ER) | payer MEDICARE ==
[2020-01-16 01:20] VITALS: BP 145/68
[2020-01-16] MEDS ORDERED: predniSONE 20 MG TAB PO ONE (03:45)
[2020-01-16] MEDS ORDERED: FAMOTIDINE 20 MG TAB PO ONE (03:45)
--- NOTE | 2020-01-16 04:29 | Emergency Department Report ---
ED Allergic Reaction HPI - General Chief complaint: Allergic Reaction Stated complaint: ALLERGIC REACTION Source: patient Mode of arrival: Ambulatory Limitations: No Limitations - History of Present Illness Initial Comments: Patient is a 54-year-old -Cyp[place] female with a history of bipolar disorder, anxiety, hypertension, asthma and seizures for which she does not take any medication presents to the ED with complaint of acute onset persistent nasal and sinus congestion, copious tearing, throat tightness and hoarseness for the last 2 hours after being exposed to animal dander from her dog about 2 hours ago. Patient states that the dog has been outside the house the last 2 days and just prior to arrival in the ED, she carried the dog and the dog shook when being carried and she inhaled the dog's hair and dander resulting developing these symptoms. Patient states that she took 2 Benadryl tablets prior to arrival in the ED. Patient denies chest pain, fever, chills, cough, wheezing, abdominal pain, nausea, vomiting, diarrhea, swollen lips or tongue, swollen throat, dysphagia, dizziness or change in vision and syncope MD Complaint: allergic reaction, hives, facial swelling, other (Sore throat; hearing and nasal congestion) -: Sudden (2) Exposure: other (Animal dander) Symptoms: rash, itching, facial swelling, hoarseness. denies: lip swelling, difficulty swallowing, difficulty breathing, orolingual swelling, syncopy, dizziness, nausea, vomiting, other, abdominal pain Severity: moderate Treatment Prior to Arrival: benadryl Previous Allergy History: none - Related Data Home Medications Medication Instructions Recorded Confirmed Last Taken FLUoxetine [PROzac] 40 mg PO QDAY 09/08/14 09/08/14 09/06/14 Potassium Chloride [K-Dur] 10 meq PO QDAY 09/08/14 09/08/14 09/06/14 Valsartan/Hydrochlorothiazide 2 tab PO QDAY 09/08/14 09/08/14 09/06/14 [Diovan Hct 80-12.5 mg] Previous Rx's Medication Instructions Recorded Last Taken Type traMADoL [Ultram 50 MG tab] 50 mg PO Q6HR PRN #20 tablet 09/08/14 Unknown Rx lamoTRIgine [LaMICtal] 25 mg PO BID #60 tablet 02/02/19 Unknown Rx Famotidine [Pepcid] 20 mg PO BID #30 tablet 01/16/20 Unknown Rx predniSONE [Deltasone] 40 mg PO QDAY #10 tab 01/16/20 Unknown Rx Allergies Allergy/AdvReac Type Severity Reaction Status Date / Time adhesive Allergy Hives Verified 02/17/16 18:56 cat dander Allergy Itching Verified 01/16/20 01:11 dog dander Allergy Itching Verified 01/16/20 01:11 grass pollen Allergy Itching Verified 01/16/20 01:12 tree and shrub pollen Allergy Itching Verified 01/16/20 01:11 ED Review of Systems ROS: Stated complaint: ALLERGIC REACTION Other details as noted in HPI Constitutional: denies: chills, fever Eyes: other (Tearing). denies: eye pain, eye discharge, vision change ENT: congestion, other (Throat tightness). denies: ear pain, throat pain Respiratory: denies: cough, shortness of breath, SOB with exertion, SOB at rest, wheezing Cardiovascular: denies: chest pain, palpitations, syncope Endocrine: no symptoms reported Gastrointestinal: denies: abdominal pain, nausea, vomiting, diarrhea Genitourinary: denies: urgency, dysuria, discharge Musculoskeletal: denies: back pain, joint swelling, arthralgia Skin: denies: rash, lesions Neurological: denies: headache, weakness, paresthesias Psychiatric: denies: anxiety, depression Hematological/Lymphatic: denies: easy bleeding, easy bruising ED Past Medical Hx - Past Medical History Previous Medical History?: Yes Hx Hypertension: Yes Hx Seizures: Yes (No medication) Hx Psychiatric Treatment: Yes (BIPOLAR, ANXIETY) Hx Asthma: Yes - Surgical History Past Surgical History?: Yes Additional Surgical History: SADAF/ ORTHO SURG RIGHT LEG. x1. - Social History Smoking Status: Never Smoker - Medications Home Medications: Home Medications Medication Instructions Recorded Confirmed Last Taken Type FLUoxetine [PROzac] 40 mg PO QDAY 09/08/14 09/08/14 09/06/14 History Potassium Chloride [K-Dur] 10 meq PO QDAY 09/08/14 09/08/14 09/06/14 History Valsartan/Hydrochlorothiazide 2 tab PO QDAY 09/08/14 09/08/14 09/06/14 History [Diovan Hct 80-12.5 mg] traMADoL [Ultram 50 MG tab] 50 mg PO Q6HR PRN #20 tablet 09/08/14 Unknown Rx lamoTRIgine [LaMICtal] 25 mg PO BID #60 tablet 02/02/19 Unknown Rx Famotidine [Pepcid] 20 mg PO BID #30 tablet 01/16/20 Unknown Rx predniSONE [Deltasone] 40 mg PO QDAY #10 tab 01/16/20 Unknown Rx ED Physical Exam - General Limitations: No Limitations General appearance: alert, in no apparent distress - Head Head exam: Present: atraumatic, normocephalic, normal inspection - Eye Eye exam: Present: normal appearance, PERRL, EOMI Pupils: Present: normal accommodation - ENT ENT exam: Present: normal exam, normal orophraynx, mucous membranes moist, TM's normal bilaterally, normal external ear exam - Neck Neck exam: Present: normal inspection, full ROM - Respiratory Respiratory exam: Present: normal lung sounds bilaterally. Absent: respiratory distress, wheezes, rales, stridor, chest wall tenderness, decreased breath sounds, prolonged expiratory - Cardiovascular Cardiovascular Exam: Present: regular rate, normal rhythm. Absent: systolic murmur, diastolic murmur, rubs, gallop - GI/Abdominal GI/Abdominal exam: Present: soft, normal bowel sounds. Absent: tenderness, guarding, hyperactive bowel sounds, organomegaly - Extremities Exam Extremities exam: Present: normal inspection, full ROM, normal capillary refill - Back Exam Back exam: Present: normal inspection, full ROM. Absent: tenderness, CVA tenderness (R), CVA tenderness (L), muscle spasm, paraspinal tenderness, vertebral tenderness - Neurological Exam Neurological exam: Present: alert, oriented X3, CN II-XII intact, normal gait, reflexes normal - Psychiatric Psychiatric exam: Present: normal affect, normal mood - Skin Skin exam: Present: warm, dry, intact, normal color. Absent: rash ED Course Vital Signs 01/16/20 01:16 Temperature 98.0 F Pulse Rate 85 Respiratory 16 Rate Blood Pressure 145/68 O2 Sat by Pulse 98 Oximetry ED Medical Decision Making - Medical Decision Making This is a 54-year-old -[place] female with a history of bipolar disorder, anxiety, hypertension, asthma and seizures for which she does not take any medication presents to the ED with complaint of acute onset persistent nasal and sinus congestion, copious tearing, throat tightness and hoarseness for the last 2 hours after being exposed to animal dander from her dog about 2 hours ago. Patient states that the dog has been outside the house the last 2 days and just prior to arrival in the ED, she carried the dog and the dog shook when being carried and she inhaled the dog's hair and dander resulting developing these symptoms. Patient states that she took 2 Benadryl tablets prior to arrival in the ED. in the ED, patient is alert and oriented x3 and is not in distress but anxious in triage and during the physical exam. Physical exam is unremarkable and the patient was treated in the ED with steroids and Pepcid. On reevaluation, patient felt better and was discharged home on prescription for more steroids and was advised to follow-up with her primary care physician in 5 to 7 days for reevaluation. Patient was advised to return to the ED immediately if her symptoms get worse. - Differential Diagnosis Allergic reaction; hives; angioedema; urticaria Critical care attestation.: If time is entered above; I have spent that time in minutes in the direct care of this critically ill patient, excluding procedure time. ED Disposition Clinical Impression: Allergic urticaria Acute allergic reaction Qualifiers: Encounter type: initial encounter Qualified Code(s): T78.40XA - Allergy, unspecified, initial encounter Disposition: - TO HOME OR SELFCARE Is pt being admited?: No Does the pt Need Aspirin: No Condition: Stable Instructions: Urticaria (ED), Allergies (ED) Additional Instructions: Take medication with food, drink plenty of fluids and follow-up with your primary care physician in 5 to 7 days for reevaluation. Return to the ED immediately if symptoms get worse. Prescriptions: predniSONE [Deltasone] 40 mg PO QDAY #10 tab Famotidine [Pepcid] 20 mg PO BID #30 tablet Referrals: [facility] [Provider Group] - 3-5 Days Time of Disposition: 04:33 Print Language: GREENLAND[place]
== END 2020-01-16 05:15 | disposition home or self-care (01) ==
LOC: ED 00:48
DX: T78.40XA Allergy, unspecified, initial encounter (principal); L50.0 Allergic urticaria; F31.9 Bipolar disorder, unspecified; F41.9 Anxiety disorder, unspecified; I10 Essential (primary) hypertension; J45.909 Unspecified asthma, uncomplicated; Z88.8 Allergy status to other drugs, medicaments and biological substances; Z79.899 Other long term (current) drug therapy; Z98.890 Other specified postprocedural states; Z91.09 Other allergy status, other than to drugs and biological substances; X58.XXXA Exposure to other specified factors, initial encounter
CPT/HCPCS: 99282; J7512